=== PATIENT | female | born 1995 | race Caucasian/White ===

== ENCOUNTER 2021-02-17 10:03 | Emergency (ER) | payer BC, SELFPAY ==
--- NOTE | 2021-02-17 10:08 | ED.EYEPROB ---
HPI - Eye Problem General Chief complaint: Eye Problems Stated complaint: right eye pain Time Seen by Provider: 02/17/21 10:15 Source: patient and RN notes reviewed Mode of arrival: ambulatory Limitations: no limitations History of Present Illness HPI Narrative: 25-year-old female presents concern for right eye redness, pain, excessive watery drainage. Reports symptoms started this morning. Reports she has had similar episodes to this 3-4 times in the last several months, always when she wakes up. Reports she sleeps with her eyes half open. She denies wearing contact lenses. She reports light sensitivity. She denies any known foreign body. Denies purulent drainage. Denies any eyelid swelling. chief complaint: eye pain Related Data Home Medications Medication Instructions Recorded Confirmed norgestimate-ethinyl estradiol 1 tablet PO DAILY 02/17/21 02/17/21 [[facility]] Allergies Allergy/AdvReac Type Severity Reaction Status Date / Time No Known Allergies Allergy Verified 02/17/21 10:20 Review of Systems Review of Systems: Narrative: CONSTITUTIONAL: Denies malaise, chills, sweats, or fever. EYES: Reports right eye blurry vision, excessive watery drainage, redness, pain that started this morning. ENT: Reports clear rhinorrhea. Denies congestion, sinus pain, otalgia or sore throat. CARDIOVASCULAR: Denies chest pain, palpitations, or edema. RESPIRATORY: Denies cough or dyspnea. SKIN: Denies rash or itching. MUSCULOSKELETAL: Denies myalgia. NEUROLOGIC: Denies headache. All systems reviewed & are unremarkable except as noted in HPI and below PMFSH Comments At time of signature, agree with nursing past medical, surgical, social and family history. There is no relevant family history pertinent to the presenting complaint Exam Narrative: Exam Narrative: GENERAL: Well-appearing, well-nourished, and in no acute distress. HEAD: Normocephalic, atraumatic. EYES: PERRLA EOMI. No nystagmus. Right eye sclera injected, conjunctive a clear, excessive watery drainage noted. No upper or lower eyelid edema, no periorbital edema. No foreign bodies visible. Large corneal abrasion noted upon Mac lamp exam, see note. ENT: Nares clear. Mucous membranes moist. NECK: Supple. CHEST: No respiratory distress. Speaks in full sentences. HEART: Regular rate and rhythm. SKIN: Warm, dry, no rash. NEURO: Alert and oriented x3. PSYCH: Normal mood and affect Course Course Emergency Course: Patient is aware of diagnosis, understands and agrees to treatment plan. Anticipatory guidance given. Patient agrees to follow-up as directed and is aware of reasons to seek care at the emergency department. Portions of this record may have been created with voice recognition software Vital Signs Vital signs: Vital Signs Temperature 98.1 F 02/17/21 10:15 Pulse Rate 105 H 02/17/21 10:15 Respiratory Rate 16 02/17/21 10:15 Blood Pressure 140/92 H 02/17/21 10:15 Pulse Oximetry 99 02/17/21 10:15 Temperature 98.1 F 02/17/21 10:15 Pulse Rate 105 H 02/17/21 10:15 Respiratory Rate 16 02/17/21 10:15 Blood Pressure 140/92 H 02/17/21 10:15 Pulse Oximetry 99 02/17/21 10:15 Reviewed. Procedures Other Procedure Procedure 1: Other Procedure: Tetracaine 1 gtt instilled in right eye, fluorescein stain applied. Corneal abrasion noted upon mac lamp exam above the pupil. Eye washed with NS 100 ml. No foreign bodies or Bebeto sign noted. MDM - Eye Problem MDM Narrative Medical decision making narrative: Consideration of the following conditions may be warranted for the presenting problem, they are not final diagnoses: Bacterial conjunctivitis, allergic conjunctivitis, viral conjunctivitis, foreign body, blepharitis, chalazion, hordeolum, corneal abrasion, preseptal cellulitis, orbital cellulitis. No evidence of proptosis, ophthalmoplegia, vision loss, pain with eye movement. Exam findings show no acute concer
[2021-02-17 10:15] VITALS: BP 140/92; PULSE 105; RESP 16; TEMP 36.7; O2SAT 99
== END 2021-02-17 10:41 | disposition home or self-care (01) ==
PROVIDERS: Emergency Provider Nurse Practitioner
DX: S05.01XA Injury of conjunctiva and corneal abrasion without foreign body, right eye, initial encounter (principal); X58.XXXA Exposure to other specified factors, initial encounter
CPT/HCPCS: 99213; A9270; G0463